=== PATIENT | male | born 1965 | race African-American/Black ===

== ENCOUNTER 2025-02-06 12:06 | Outpatient (CLI) | payer OTHER, SELFPAY ==
--- NOTE | ~2025-02-06 | MR_ITS ---
EXAMINATION: MR renal wo/w con DATE: 02/06/2025 13:17 INDICATION: Kidney mass. TECHNIQUE: Magnetic resonance imaging (MRI) of the abdomen was performed without and with 19 mL Multi Cesario intravenous contrast. COMPARISON: None. FINDINGS: The liver is normal. There is a 6 mm mass in the spleen, likely granulomatous disease. The gallbladde r is absent. The pancreas and adrenal glands are normal. There are cysts in the kidneys measuring up to 5 mm on the right. There is a 2.5 cm cystic mass in left kidney that demonstrates thickened wall a nd septations with increased precontrast T1-weighted signal intensity and areas of contrast enhanceme nt. There is a 6 mm hemorrhagic cyst in left kidney. There are no dilated loops of bowel. There are n o pathologically enlarged lymph nodes. There is no free intraperitoneal fluid. IMPRESSION: 1. 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 Surgical consultation is recommended. Reviewed, dictated and finalized at location []
== END 2025-02-06 12:07 | disposition home or self-care (01) ==
PROVIDERS: PCP Internal Medicine; Visit Provider Internal Medicine
DX: N28.1 Cyst of kidney, acquired (principal); N28.89 Other specified disorders of kidney and ureter
CPT/HCPCS: 74183; A9577